=== PATIENT | male | born 1980 | race Caucasian/White ===

== ENCOUNTER 2016-10-22 13:41 | Emergency (ER) | payer SELFPAY ==
[2016-10-22 13:49] VITALS: BP 136/84; PULSE 70; TEMP 98; BMI 29.2
--- NOTE | 2016-10-22 14:05 | PDOC ---
History of Present Illness - General Chief Complaint: Edema Stated Complaint: LEFT LOWER LEG SWELLING Time Seen by Provider: 10/22/16 13:52 History Source: Patient Exam Limitations: No Limitations - History of Present Illness Initial Comments: 10/22/16 13:58 35y M no pmhx presents with complaint of L leg swelling. The patient states that one week ago, [place] train and he felt soreness on his L steven. A few days later, on friday, he noticed increased swelling on his ankle, although the pain had largely subsided. He took some over the counter medication and the swelling resolved but came back today. The pt endorses worsening swelling today. He denies any redness, fever/cihlls, sob, calf pain, coughing,. Pt endorses simlar episode 2 years ago whre he strained something and it swelled for a few days before resolving. pt denies any steroid use (previously used 2 years ago, but non recently) Past History - Past Medical History Allergies/Adverse Reactions: Allergies Allergy/AdvReac Type Severity Reaction Status Date / Time No Known Allergies Allergy Verified 10/22/16 13:42 Home Medications: Ambulatory Orders NK [No Known Home Medication] 10/22/16 Other medical history: DENIES - Psycho/Social/Smoking Cessation Hx Anxiety: No Suicidal Ideation: No Smoking History: Current every day smoker Have you smoked in the past 12 months: Yes Number of Cigarettes Smoked Daily: 30 Information on smoking cessation initiated: Yes 'Breaking Loose' booklet given: 10/22/16 Hx Alcohol Use: No Drug/Substance Use Hx: No Substance Use Type: None Review of Systems - Review of Systems Able to Perform ROS?: Yes Comments:: 10/22/16 14:13 Constitutional - no reported Fever, Chills, HEENT: no reported vision changes, sore throat Respiratory: no reported cough, sob, hemoptysis Cardiac: no reported chest pain, palpitations, light headedness, leg swelling Abd/GI: no reported abd pain, nausea, vomiting, blood per rectum, melena, diarrhea : no reported dysuria, frequency, discharge Musculskelatal - +LLE swelling no reported back pain, joint swelling skin - no reported bruising, erythema, rash neurological: no reported headache, numbness, focal weakness, tingling, ataxia, hematologic: no reported anemia, easy bruising, easy bleeding *Physical Exam - Vital Signs Last Vital Signs Temp Pulse Resp BP Pulse Ox 98 F 70 20 136/84 98 10/22/16 13:41 10/22/16 13:41 10/22/16 13:41 10/22/16 13:41 10/22/16 13:41 - Physical Exam Comments: 10/22/16 14:13 GENERAL: The patient is awake, alert, and fully oriented, Nontoxic - in no acute distress. HEAD: Normocephalic, atraumatic. EYES: extraocular movements intact, sclera anicteric, conjunctiva clear. ENT: Normal voice, Moist mucous membranes. NECK: Normal range of motion, supple LUNGS: Breath sounds equal, clear to auscultation bilaterally. No wheezes, no rhonchi, no rales. HEART: Regular rate and rhythm, normal S1 and S2 without murmur, rub or gallop. ABDOMEN: Soft, nontender, normoactive bowel sounds. No guarding, no rebound. . No CVA tenderness EXTREMITIES: Normal range of motion No clubbing or cyanosis. No cords, erythema , or tenderness. +1 pitting edema in the ankles of LLE, no calf tenderness, negative homans sign, no erythena/induration/warmth. No focal tenderness anywhere else. NEUROLOGICAL: No facial assymetry, Normal speech, PSYCH: Normal mood, normal affect. 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 I answered all of the patient's questions. The patient was satisfied with the care received and felt comfortable with the discharge plan and treatment plan. The patient will call their primary care physician within 24 hours to arrange follow-up and will return to the Emergency Department with any new, persistent or worsening symptoms. *DC/Admit/Observation/Transfer Diagnosis at time of Disposition: Lower leg edema - Discharge Dispostion Disposition: HOME Condition at time of disposition: Stable Admit: No - Referrals Referrals: [facility] [Provider Group] - Patient Instructions Printed Discharge Instructions: DI for Peripheral Edema, Unilateral Additional Instructions: I suspect your swelling is due to your recent injury/strain. Keep your leg elevated. use a jake bandage for compression. Rest. TAke motrin for any discomfort. Follow up with your doctor in 3-4 days for reevaluation. If you need a doctor, you can follow up with the doctor provided. Return to the ED for evaluation if you have any redness, worsening swelling, pain, shortness of breath,chest pain or other concerns. Print Language: PERUVIAN - Post Discharge Activity Work/School Note: Back to Work
== END 2016-10-22 14:18 | disposition home or self-care (01) ==
LOC: FER 13:41
DX: R60.0 Localized edema (principal); F17.210 Nicotine dependence, cigarettes, uncomplicated
CPT/HCPCS: 99283-25